=== PATIENT | female | born 1985 | race Hispanic/Latino ===

== ENCOUNTER 2019-12-23 09:03 | Inpatient (IN) | payer BC ==
[2019-12-23] MEDS ORDERED: Ringers Lactate 1,000 ML IV PRN (10:13)
[2019-12-23] MEDS ORDERED: CARBOPROST TROME 250 MCG/ML IM PRN ×2 (10:20→13:42)
[2019-12-23] MEDS ORDERED: METHYLERGONOVINE 0.2MG/ML AMP IM PRN (10:20)
[2019-12-23] MEDS ORDERED: FAMOTIDINE 20 MG/2 ML VIAL IV ONE (10:28)
[2019-12-23] MEDS ORDERED: NA CIT/CITRIC AC 30 ML ORAL UDC PO ONE (10:28)
--- NOTE | 2019-12-23 10:36 | PREOPHP ---
Date of Admission: 12/23/2019 History Of Present Illness: Norma Lee is a 34-year-old primigravida, 36 weeks, twin gestation, mota s been seen in consultation with Dr. Lieberman, high-director security risk management in [place]. The patient has been h aving problems with fluid retention, elevated blood pressures. Thus far, patient has been negative i n the urine. However, in less than a week, the patient has gained 12 pounds. Her blood pressure her e in the office is 200/100. She has no AUTOMATIC WASHER MECHANIC symptoms. She has massive edema. Cervix is fingertip. First baby is vertex. Second 1 is breech. We will send her directly to Labor and Delivery. The pat mary has had Celestone earlier in the and it is now time for delivery. Infection; blood lo ss; anesthetic complications; injury to bladder, bowel, ureter; postoperative complications; clots in legs have been discussed with patient on numerous occasions. Family History: Significant for hypertension in several family members. Maternal grandmother had a stroke. Numerous people with diabetes in the family as well. Allergies: THE PATIENT HAS NO ALLERGIES. Past Surgical History: She had stomach surgery in 2011 and surgery in 2005. Social History: She does not smoke. Physical Examination: HEENT: Clear. Pupils equal, round, reactive to light and accommodation. Conjunctivae well perfused . No oral, lingual, or buccal lesions. Chest and Lungs: Clear. Heart: Without murmurs, thrills, heaves, or rubs. Breasts: Not examined today but without masses previously. Abdomen: of 40 cm. Extremities: Extremely edematous +4 or more including the hands. Assessment And Plan: We will proceed with delivery as a second baby is breech. Patient has an unfavorable cervix with extreme blood pressure elevation. LUIS/AVE Voice ID: [id number]
[2019-12-23] MEDS ORDERED: METOCLOPRAMIDE 10 MG/2mL INJ IV SCH (11:00)
[2019-12-23] MEDS ORDERED: Ringers Lactate 1,000 ML IV SCH (11:00)
[2019-12-23] MEDS ORDERED: CEFAZOLIN/SWI 1gm 1 GM/10 ML SYR IV SCH ×2 (11:00→21:00)
--- NOTE | 2019-12-23 11:05 | RAD REPORT ---
EXAM DESCRIPTION: RAD - Abdomen 1 View (KUB) - 12/23/2019 10:56 am CLINICAL HISTORY: Twin assess presentation FINDINGS: Twin A cephalic presentation Twin B breech presentation. The head maternal right abdomen. The spine extends into the left abdomen. The buttocks lower left abdomen/upper left pelvis
[2019-12-23 11:29] LABS: Urine Appearance CLEAR; Urine Bilirubin NEGATIVE (NEG); Urine Blood NEGATIVE (NEG); Urine Color YELLOW; Urine Glucose NEGATIVE (NEG); Urine Protein NEGATIVE (NEG); Urine Specific Gravity <=1.005 (1.005-1.030); Urine Urobilinogen 0.2 mg/dL (0.2-1.0)
[2019-12-23 11:33] LABS: Basophils % 0.4 % (0-1.3); Hematocrit 32.1 % (36.0-45.0); MPV 9.9 fL (7.6-11.3)
[2019-12-23 11:37] LABS: Protime INR 0.87
[2019-12-23 11:40] LABS: Urine Microscopic Reflex ORDER UMIC
[2019-12-23] MEDS ORDERED: CEFAZOLIN/SWI 2gm 2 GM/20 ML SYR ONE (11:50)
[2019-12-23 12:03] LABS: Urine Bacteria >50 /HPF (<20); Urine Culture Reflex Order REFLEXED; Urine RBC <5 /HPF (NONE SEEN)
[2019-12-23] MEDS ORDERED: EPHEDRINE SULF 50 MG/ML VIAL ONE (12:18)
[2019-12-23] MEDS ORDERED: MORPHINE SULFATE/PF 1 MG/ML (10 ML AMP) ONE (12:18)
[2019-12-23] MEDS ORDERED: Phenylephrine HCl 10 MG/ML 1 ML VIAL ONE (12:18)
[2019-12-23] MEDS ORDERED: OXYTOCIN 10 UNIT/ML ML IV ONE (12:18)
[2019-12-23] MEDS ORDERED: LIDOCAINE 1% MPF 5 ML VIAL ONE (12:19)
[2019-12-23] MEDS ORDERED: BUPIVACAINE 0.75% (PF) 2 ML SP ONE (12:19)
[2019-12-23] MEDS ORDERED: NS 0.9% VIAL 20 ML ONE (12:19)
[2019-12-23] MEDS ORDERED: ONDANSETRON 4 MG/2 ML VIAL ONE (12:19)
[2019-12-23] MEDS ORDERED: FENTANYL CITR 250 MCG/5 ML ONE (12:29)
[2019-12-23] MEDS ORDERED: DIPHENHYDRAMINE 25 MG TAB/CAP PO PRN (13:42)
[2019-12-23] MEDS ORDERED: ONDANSETRON 4 MG (ODT) TAB PO PRN (13:42)
[2019-12-23] MEDS ORDERED: KETOROLAC 30 MG/ML INJ IV PRN (13:42)
[2019-12-23] MEDS ORDERED: ONDANSETRON 4 MG/2 ML VIAL IV PRN ×2 (13:42→14:47)
[2019-12-23] MEDS ORDERED: Oxycodone HCl/Acetaminophen 1 TAB TAB PO PRN (13:42)
[2019-12-23] MEDS ORDERED: BISACODYL 10 MG RECTAL SUPP RC PRN (13:42)
[2019-12-23] MEDS ORDERED: ACETAMINOPHEN 500 MG TAB PO PRN ×2 (13:42)
[2019-12-23] MEDS ORDERED: OXYTOCIN/LR 20 UNIT/1,000 ML BAG IV SCH (14:00)
[2019-12-23] MEDS ORDERED: D5LR 1,000 ML with OXYTOCIN 20 UNIT IV SCH ×2 (14:00)
[2019-12-23] MEDS ORDERED: LABETALOL HCL 100 MG/20 ML ONE (14:01)
[2019-12-23] MEDS ORDERED: PHENOBARBITAL 32.4 MG TABLET PO ONE (14:05)
[2019-12-23] MEDS ORDERED: DIPHENHYDRAMINE 50 MG/ML VIAL IV PRN (14:42)
[2019-12-23] MEDS ORDERED: METOCLOPRAMIDE 10 MG/2mL INJ IV PRN (14:47)
[2019-12-23] MEDS ORDERED: METOCLOPRAMIDE 10 MG/2mL INJ ONE (14:59)
[2019-12-23] MEDS: PROMETHAZINE INJ 25 MG/ML AMP IV PRN ×2 (15:10→21:45)
[2019-12-23] MEDS ORDERED: cloNIDine HCL 0.1 MG TAB PO ONE ×2 (16:00→18:38)
[2019-12-23] MEDS ORDERED: LABETALOL 20 MG/4ML SYRINGE IV SCH (16:00)
[2019-12-23] MEDS ORDERED: MAGNESIUM SULF/STERILE WATER 1,000 ML IV ONE (16:32)
[2019-12-23] MEDS ORDERED: LABETALOL 20 MG/4ML SYRINGE IV ONE ×2 (18:00→18:36)
[2019-12-23 19:57] VITALS: BMI 43.0
[2019-12-23] MEDS ORDERED: Ringers Lactate 2,000 ML IV ONE (20:37)
[2019-12-23 20:52] VITALS: O2SAT 97
--- NOTE | 2019-12-23 21:20 | PN ---
Since delivery, the patient has been given labetalol 10 mg IV one time and clonidine 0.1 mg p.o. one time. In spite of these 2 efforts, her blood pressure was back to 170 range systolic. I have ordere d 20 mg of labetalol IV at this point. I have also decided to stop the phenobarbital and begin magne sium sulfate 4 g loading dose, 2 g in hour maintenance dose. We will check magnesium levels later in the evening. I think that because of the blood pressures and severe swelling, the patient should pr obably be continued on magnesium sulfate until the morning. Full discussion with the patient and josseline casiano. The patient is quite stable at this point. No complaints of MINE EXPLORATION ENGINEER problems. She is slightly deborah seated. LUIS/AVE Voice ID: [id number] Report ID: [id number]
[2019-12-23] MEDS ORDERED: CEFAZOLIN/SWI 2gm 2 GM/20 ML SYR IVP ONE (22:00)
[2019-12-23] MEDS ORDERED: CEFAZOLIN 2 GM in NA CHLORIDE 0.9% 100 ML IVPB ONE (22:00)
[2019-12-23 22:41] LABS: RPR (Rapid Plasma Reagin) NON-REACT (NON-REACT)
[2019-12-23] MEDS ORDERED: LABETALOL 20 MG/4ML SYRINGE IV PRN (22:49)
--- NOTE | 2019-12-23 23:42 | OP ---
Surgeon: Venkatesh Salmon MD Norma Lee is a 34-year-old primigravida at 36 weeks, followed antepartum, noted to have twins, see n in consultation with Dr. Lieberman, high-risk and insurance manager, for evaluation of possible gross discrepancy in the twins. The patient has had significant edema and within the last 3-4 days gained 12 pounds. Blood pressure in the office 200/100. +4, +5 edema basically total body. Protein noted in the urin e, but not dramatic. The patient had Celestone earlier in the . The possibility of early d elivery had been discussed. Twin B breech and therefore was decided to proceed with plus. Her cervix was significantly unfavorable. Family history shows several grandparents with hypertensio n, maternal grandmother with a stroke, several grandparents with diabetes. Full preoperative activities counselor ing concerning infection, blood loss, anesthetic complications, injury to bladder, bowel, ureter. Sp inal block anesthesia by Fidencio Nevarez and . Dr. Denton, assistant program manager surgeon. Pediatrics prese nce requested. After prepping and draping, time-out was performed. Pfannenstiel incision was create d. The incision was carried to the fascia and incision carried transversely bilaterally. Anterior a nd posterior fascial planes were developed with both blunt and sharp dissection, underlying rectus mu scle , peritoneum entered. Low transverse bladder flap developed. Low transverse uterine i ncision created. Twin A delivered vertex, the smaller of the 2 twins. Apgars 9 and 9. Baby is in t he range of 4 pounds. Cord clamp placed. Then, twin B delivered from footling breech presentation, easy delivery. Apgars 9 and 9 again. Cord blood obtained from both the cords. Placenta removed man ually. Uterus cleared of clot and blood and exteriorized. Cervical os dilated with ring clamp. Lena bety closed with a running lock stitch of 1 chromic followed by imbricating stitch of 1 chromic. Germaine mated blood loss 850 cc. Gutters clear of clot and blood. Uterus replaced in the peritoneal cavity. Inspection of suture line showed no further bleeding. Muscles were reapproximated using 0 Vicryl 3 interrupted sutures, 1 PDS used to close the fascia running from either angle to the midline. Subcu taneous tissue closed with 2-0 plain. Gina used for the skin. The patient had been given 2 g of Ancef. Tolerated all procedures well. Transferred back to her room in good condition. Final Diagnoses: Intrauterine gestation, 36 weeks. Twin . Preeclampsia. Twin B breech. Primary section. Spinal block anesthesia. LUIS/AVE Voice ID: [id number] Report ID: [id number]
[2019-12-24] MEDS: IBUPROFEN 600 MG TAB PO PRN (08:03)
--- NOTE | 2019-12-24 08:52 | PN ---
Postoperatively, the patient has done quite well. She is very alert this morning. The patient is be ginning to diurese with 350 cc/hour urine output. Blood pressures are still elevated, but better victor hugo n they were during the labor. H and H with minimal change. Lochia is normal. Full postop talk give n. We will continue the magnesium sulfate until lunchtime and if the patient continues to diurese, w e will discontinue [place] and IV at that time, and start the patient on phenobarbital. She knows that we may have to send her home with blood pressure medicines depending upon what her blood pressures d o in the next 24 hours. The twins are doing quite well and will be seen this morning. They are to b e circumcised. We will begin ambulation around lunchtime and p.o. intake with regular diet at that p oint if the patient is continuing to progress. No post spinal block problems reported. The patient has only had 1 tramadol dose thus far and is really still resting quite comfortably. Last magnesium level was 5.2, within the therapeutic range. LUIS/MODL Voice ID: [id number] Report ID: [id number]
[2019-12-24] MEDS ORDERED: LABETALOL HCL 100 MG/20 ML ONE (09:39)
[2019-12-24] MEDS: Oxycodone HCl/Acetaminophen 1 TAB TAB PO PRN ×2 (09:45→19:50)
[2019-12-24] MEDS ORDERED: Ringers Lactate 2,000 ML IV ONE (11:50)
[2019-12-24] MEDS: PHENOBARBITAL 32.4 MG TABLET PO SCH ×2 (13:20→21:00)
[2019-12-24] MEDS ORDERED: MAGNESIUM HYDROXIDE 8% 30 ML PO PRN (13:42)
[2019-12-24] MEDS ORDERED: LABETALOL 20 MG/4ML SYRINGE IV PRN (18:38)
[2019-12-25] MEDS: IBUPROFEN 600 MG TAB PO PRN ×2 (00:30→10:40)
[2019-12-25] MEDS: PHENOBARBITAL 32.4 MG TABLET PO SCH ×2 (05:30→12:35)
--- NOTE | 2019-12-25 11:40 | DS ---
Norma Lee, 34-year-old primigravida at 36 weeks, followed antepartum, for several weeks has had swelling, mildly elevated blood pressure and then gained 12 pounds within 3 days. Blood pressure was 200/100 in the office, +2 protein, was sent to Labor and delivery. We had anticipated possible early delivery and she had taken Celestone shots earlier in the . Twin boys, twin B breech. section was performed under spinal block anesthesia with delivery of a twin A, 4 pounds 5 ounces, Apgars 9 and 9. Twin B, footling breech that came out easily, 5 pounds and 9 ounces. Apgars 9 and 9. Estimated blood loss 850 cc. Ancef pre and postop for anesthesia. Postoperatively has done well, was given at various points during the labor and post operatively Apresoline, clonidine and labetalol. For almost 24 hours now, patient has not had labetalol and her blood pressures are still elevated but less than 160 systolic. She has no HOSPITAL TRAY SERVICE WORKER symptoms. She is ambulating, voiding, lochia is normal. She had been placed on magnesium sulfate that has been discontinued. We will dismiss her later this morning to return to my office next week for followup. Tramadol for analgesia. She knows this goes through the breast milk, phenobarbital to be taken for another 3 to 4 days to reduce risk for seizure activity. Tdap and flu shots offered. No post spinal block problems noted. Rh positive, immune to rubella, strep negative, COVID negative. Final Diagnosis: Twins, intrauterine gestation at 36 weeks, severe preeclampsia, primary section, spinal block anesthesia, antihypertensive treatment, pressures improving. Tdap and flu shots offered. LUIS/AVE Voice ID: [id number] Report ID: [id number]
[2019-12-25 12:40] VITALS: BP 160/84; TEMP 98.1
[2019-12-26 20:16] LABS: HBsAG Nonreactive (Nonreactive)
== END 2019-12-25 14:10 | disposition home or self-care (01) | DRG 788 ==
LOC: 2ND-WC 09:03
PROVIDERS: ADMIT Specialist; ATTEND Specialist
PROC: 10D00Z1 Extraction of Products of Conception, Low, Open Approach (ICD-10-PCS; principal; 2019-12-23 12:17)
DX: O14.14 Severe pre-eclampsia complicating childbirth (principal); O60.14X0 Preterm labor third trimester with preterm delivery third trimester, not applicable or unspecified; O30.033 Twin pregnancy, monochorionic/diamniotic, third trimester; O32.1XX2 Maternal care for breech presentation, fetus 2; Z3A.36 36 weeks gestation of pregnancy; Z37.2 Twins, both liveborn; Z20.828 Contact with and (suspected) exposure to other viral communicable diseases
CPT/HCPCS: 36415; 74018; 81003; 81015; 83735; 85014; 85025; 85610; 85730; 86592; 86850; 86900; 86901; 87086; 87088; 87340; 88307; J0690; J1200; J2210; J2370; J2405; J2550; J2590; J2765; J3010; J3475; J7120; J7121; U0003